=== PATIENT | female | born 1955 | race Caucasian/White ===

== ENCOUNTER → 2016-12-18 | Day surgery (SDC) | payer OTHER ==
[~2016-12-18] MED LIST: BACL10TA PO; BRIM0.2S LEFT EYE; DICL75 PO; ENBR50IN3 SQ/IV; FLUN8.9H INH; FURO20 PO; KETO2SHA5 TOP; LACTATED RINGER'S 1000 ML INJ 1,000 ML ONE; MS C15TA7 PO; NITR0.4S SL; ONDA4 PO; PERC10TA27 PO; POTA-267 PO; PROPOFOL 200 MG/20 ML AMP IV ONE; RANI150T PO; ROPI2TAB PO; SULF500T35 PO; TIMO0.5S29 EACH EYE; TRAZ100 PO; [UNRECOGNIZED DRUG - CODE] PO
--- NOTE | 2016-12-18 11:12 | GIPROC ---
[facility] [address] [facility], [address] EGD PROCEDURE REPORT EXAM DATE: 12/18/2016 PATIENT NAME: Chaz Webster MR #: [id number] BIRTHDATE: 1955 ATTENDING: Jona Zapata MD ORDER #: [id number] LABORER [employer]: Valarie Ortiz RN STATUS: outpatient INDICATIONS: The patient is a 60 yr old female here for an EGD due to chest pain and dysphagia PROCEDURE PERFORMED: EGD w/ biopsy MEDICATIONS: None, Per Anesthesia, None, and Per Anesthesia. TOPICAL ANESTHETIC: none CONSENT: The patient understands the risks and benefits of the procedure and understands that these risks include, but are not limited to: sedation, allergic reaction, infection, perforation and/or bleeding. Alternative means of evaluation and treatment include, among others: physical exam, x-rays, and/or surgical intervention. The patient elects to proceed with this endoscopic procedure. medical equipment was checked for proper function. Hand hygiene and appropriate measures for infection prevention was taken. After the risks, benefits and alternatives of the procedure were thoroughly explained, Informed consent was verified, confirmed and timeout was successfully executed by the treatment team. The patient was anesthetized with topical anesthesia and the EG-[id number] ([id number]) endoscope was introduced through the mouth and advanced to the second portion of the duodenum. Retroflexed views revealed no abnormalities The gastroscope was then slowly withdrawn and removed. ESOPHAGUS: The mucosa of the esophagus appeared normal. Multiple biopsies were performed. The stricture was dilated using a 18mm (54Fr) savary dilator over guidewire. Following this dilation, there was no change in the appearance of the stricture. The endoscopy was otherwise normal. STOMACH: There was mild gastritis in the gastric antrum. Multiple biopsies were performed. ADVERSE EVENTS: There were no complications. IMPRESSIONS: 1. The esophagus appeared normal; multiple biopsies were performed 2. Normal endoscopy otherwise 3. There was mild gastritis in the gastric antrum; multiple biopsies were performed 4. Retroflexed views revealed no abnormalities RECOMMENDATIONS: 1. Await biopsy results. Biopsy results will not be ready for 7-10 days. If you don't hear from us in two weeks, call our office for biopsy results. 2. Follow-up: GI clinic 4 week(s) PATIENT CONDITION: stable DISPOSITION: Home REPEAT EXAM: Jona Zapata MD eSigned: Jona Zapata MD 12/18/2016 11:11 AM cc: Mike Antonio
== END | disposition home or self-care (01) ==
LOC: ESDC 09:28
PROVIDERS: ATTEND Internal Medicine Gastroenterology
DX: R07.9 Chest pain, unspecified (principal); R13.10 Dysphagia, unspecified; K29.70 Gastritis, unspecified, without bleeding
CPT/HCPCS: 00740; 43239; 88305; 88312; J3010; J7120

== ENCOUNTER 2017-10-01 06:43 | Day surgery (SDC) | payer OTHER ==
[~2017-10-01] VITALS: Ht 167.6 cm; Wt 115.0 kg
[~2017-10-01 06:43] MED LIST changes: -LACTATED RINGER'S 1000 ML INJ 1,000 ML ONE; -PROPOFOL 200 MG/20 ML AMP IV ONE
[2017-10-01] MEDS ORDERED: IOHEXOL 350 MG/ML 50 ML BTL (for Cath Lab) OTHER ONE (06:44)
[2017-10-01 07:21] VITALS: BP 146/76; PULSE 70; RESP 20; TEMP 97.6; O2SAT 96
[2017-10-01] MEDS ORDERED: AMMO12LO TOPICAL (07:29)
[2017-10-01] MEDS ORDERED: CYCL7.5E EACH EYE (07:29)
[2017-10-01] MEDS ORDERED: HUMI40KI SQ (07:29)
[2017-10-01] MEDS ORDERED: GABA400C5 PO (07:29)
[2017-10-01] MEDS ORDERED: RANI150T PO (07:29)
[2017-10-01] MEDS ORDERED: ZOFR4TAB PO (07:29)
[2017-10-01] MEDS ORDERED: FLUT50SP EACH NARE (07:29)
[2017-10-01] MEDS ORDERED: VIGA0.5D EACH EYE (07:29)
[2017-10-01] MEDS ORDERED: PERC10TA27 PO (07:29)
[2017-10-01] MEDS ORDERED: TIMO0.5S30 EACH EYE (07:29)
[2017-10-01] MEDS ORDERED: NITR0.4S SL (07:29)
[2017-10-01] MEDS ORDERED: GALA24CA PO (07:29)
[2017-10-01] MEDS ORDERED: KETO2AER TOPICAL (07:29)
[2017-10-01] MEDS ORDERED: ISOS30TA3 PO (07:29)
[2017-10-01] MEDS ORDERED: FURO1TAB62 PO (07:29)
[2017-10-01] MEDS ORDERED: MORP1TAB24 PO (07:29)
[2017-10-01] MEDS ORDERED: ROPI2TAB23 PO (07:29)
[2017-10-01] MEDS ORDERED: SPIR25TA PO (07:29)
[2017-10-01] MEDS ORDERED: TRAZ100T10 PO (07:29)
[2017-10-01] MEDS ORDERED: BACL10TA PO (07:29)
[2017-10-01] MEDS ORDERED: KLOR10TA PO (07:29)
[2017-10-01] MEDS ORDERED: NS 1000P @30 MLS/HR (KVO) IV SCH (07:45)
[2017-10-01 07:53] LABS: AUTOMATED NEUTROPHIL # 1.1 TH/MM3 (1.8-7.7); BASOPHIL % 0.4 % (0.0-2.0); EOSINOPHIL # 0.2 TH/MM3 (0-0.4); EOSINOPHIL % 5.6 % (0.0-4.0); HEMATOCRIT 35.3 % (35.0-46.0); LYMPH % 44.7 % (9.0-44.0); LYMPHOCYTE # 1.7 TH/MM3 (1.0-4.8); MEAN CELL VOLUME 91.8 FL (80.0-100.0); MEAN CORPUSCULAR HEMOGLOBIN 31.3 PG (27.0-34.0); MEAN CORPUSCULAR HGB CONC 34.1 % (32.0-36.0); MEAN PLATELET VOLUME 6.9 FL (7.0-11.0); MONO % 19.6 % (0.0-8.0); MONOCYTE # 0.7 TH/MM3 (0-0.9); NEUT % 29.7 % (16.0-70.0); PLATELET COUNT 208 TH/MM3 (150-450); RED BLOOD COUNT 3.84 MIL/MM3 (4.00-5.30); RED CELL DISTRIBUTION WIDTH 13.7 % (11.6-17.2); WHITE BLOOD COUNT 3.8 TH/MM3 (4.0-11.0)
[2017-10-01 08:01] LABS: INTERNATIONAL NORMALIZED RATIO 1.1 RATIO; PROTHROMBIN TIME - PATIENT 10.7 SEC (9.8-11.6)
[2017-10-01 08:06] LABS: BICARBONATE 26.5 MEQ/L (21.0-32.0); CALCIUM 8.6 MG/DL (8.5-10.1); CREATININE 0.7 MG/DL (0.50-1.00)
[2017-10-01] MEDS ORDERED: HEPARIN-NS/PF INJ 1,000 ML ONE (08:25)
[2017-10-01] MEDS ORDERED: MIDAZOLAM HCL 2 MG/2 ML VIAL ONE (08:31)
[2017-10-01] MEDS ORDERED: VERAPAMIL HCL 5 MG/2 ML VIAL ONE (08:44)
[2017-10-01] MEDS ORDERED: HEPARIN SODIUM - IV 10,000 UNITS/10 ML VIAL ONE (08:44)
[2017-10-01] MEDS ORDERED: NITROGLYCERIN INJ 5 ML ONE (08:46)
[2017-10-01] MEDS ORDERED: MISC INFORMATION XX ONE (09:15)
--- NOTE | 2017-10-01 09:18 | CATHPROC ---
[facility] HIS Report Study Information Study Number Admission Scheduled Start Study Start [id number] Oct 01 2017 6:43AM 10/01/2017 Oct 01 2017 8:22AM [place] Service Cardiac Catheterization Admit Source Facility Department Other [facility] Physician and Clinical Staff Initial Julian Christianson Mortgage Accounting Clerk Dominga Bautista RN Mortgage Accounting Clerk Antonina Monteiro BSN Other Joseph Ross RCIS(BS) Recorder Caterina Siegel RCIS TECH2 Scrub Cesia Valladares RT(R) Procedures Performed Procedure Location (Site) Vessel Name Coronary Angiograms LCA Left Coronary Coronary Angiograms RCA Right Coronary Equipment Time Dot Compliance Specialist Description Size Mfg Part Number Used/Scraped TRANSDUCER, TRUWAVE [id number] 08:25 LiveIntent * Used W/STOCKCOCK *[id number] INTRODUCER SET, 08:25 [employer] FR 5 [id number] *[id number] Used MICROPUNCTURE, STIFFENED [id number] *[id number] 08:25 [employer] IND[employer]RIES PACK, CCL CUSTOM * Used *[id number] 08:36 MEDTRONIC JR 4.0 DXTERITY CATHETER FR 5 Used *[id number] BAND, RADIAL COMPRESSION TR [id number] 09:00 [employer] 24CM Used SHORT 24 *[id number] 08:25 [employer] WIRE, 3MMJ .035 180CM 180CM Used *[id number] 08:57 [employer] WIRE, EXCHANGE 260CM 3MMJ 260CM Used *[id number] 08:25 NAMIC MANIFOLD, 4 PORT * Used *[id number] 08:25 [employer]COMED OMNIPAQUE, 350 MG, 150ML 150ML [id number] Used [id number] 08:25 [employer] BLANKET,WARM AIR CCL * Used *[id number] 08:25 TERUMO MEDICAL SHEATH, FR5 TERUMO (10CM) FR 5 Used *[id number] SHEATH, FR6 TRANSRADIAL RM*[id number] 08:53 TERUMO MEDICAL FR 6 Used SLENDER 10CM *[id number] Equipment Model, Serial, Lot Number and Expiration Data Description Model Number Serial Number Lot Number Expiration Date JR 4.0 DXTERITY CATHETER [id number] 06-05-2020 History: Current Medications Medication Dosage/Unit Route Frequency Last Date/Time Taken LASIX NTG SL K-Dur Imdur History: Allergies Allergy Reaction iohexol Sleepiness diatrizoate meglumine Sleepiness gadoteridol Sleepiness zolpidem gadodiamide Sleepiness vancomycin Hives and Rash iodixanol Sleepiness gadobenic acid Sleepiness DUREZOL History: Risk Factors Family History of Hypertension Dyslipidemia Previous CT Previous Heart Failure Premature CAD Yes Yes Yes Yes No Prior Valve Prior PCI Prior CABG Surgery No No No Cerebrovascular Peripheral Artery Chronic Lung On Dialysis Diabetes Disease Disease Disease No No No Yes No History: Stress Tests Stress or Imaging Studies Performed Yes Standard Exercise Stress Test No Stress Echo No Stress Test SPECT Yes History: Other Current Smoker No Labs Hgb (g/dl) Hct (%) RBC (MIL/MM3) WBC (l/cumm) Platelets (thousands) 11.60-17.00 35.00-51.00 4.00-5.90 4.00-11.00 150.00-450.00 12.0 35.3 3.8 3.8 208 Glucose (mg/dl) BUN (mg/dl) Creatinine (mg/dl) BUN:Creatinine (1:x) 74.00-106.00 7.00-18.00 0.50-1.30 10.00-20.00 99 24 0.7 34.3 Na (meq/l) K (meq/l) Cl (meq/l) CO2 (mmol/L) 136.00-145.00 3.50-5.10 98.00-107.00 21.00-32.00 140 3.8 105 26.5 PT (sec) PTT (sec) INR (PTT:PT) 9.80-11.60 24.30-30.10 0.90-1.10 10.7 27.3 1.1 CPK-MB (ng/ML) 0.50-3.60 Not Drawn Medication Medication Total Dose (Bolus/Oral) Medication Total Dosage/Unit 1% XYLOCAINE 10 mL FENTANYL 25 mcg OXYGEN 2 l/min RADIAL COCKTAIL 5 mL (Bolus) VERSED 0.5 mg Medications (Bolus/Oral) Medication Time Given Dosage/Unit Administered By Reason OXYGEN 10/01/2017 8:35:34 AM 2 l/min Dominga Bautista 2 l/min OXYGEN given in lab by Dominga BautistaMARYURI via Nasal. 1% XYLOCAINE 10/01/2017 8:48:14 AM 10 mL Julian Pantoja 10 mL 1% XYLOCAINE given in lab by Julian Pantoja G in Right Radial via Subcutaneous. VERSED 10/01/2017 8:48:28 AM 0.5 mg Dominga Bautista 0.5 mg VERSED given in lab by Dominga Bautista RN in Right Antecubital via Peripheral IV. FENTANYL 10/01/2017 8:48:45 AM 25 mcg Dominga Bautista 25 mcg FENTANYL given in lab by Dominga Bautista, MARYURI in Right Antecubital via Peripheral IV. RADIAL COCKTAIL 10/01/2017 8:52:09 AM 5 mL (Bolus) Julian Pantoja 5 mL (Bolus) RADIAL COCKTAIL given in lab by Dominga Bautista RN via Radial. Using [Solution Name]. R pia: Ntg 200mcg Verapamil 2.5mg Heparin 4600U. Medication (Drip) Medication Time Given Dosage/Unit Concentration/Unit Diluent (ml) Solutio n IV Solutions 10/01/2017 8:27:36 AM 0 mL (IV) 500 NaCl .9 Patient arrived on IV Solutions in Right Antecubital via Peripheral IV. Pump/Drip Flow = 20 ml/hr usi ng NaCl .9. Initial Case Assessment Cardiovascular HR Rhythm NIBP Chest Pain 63 sr 133/70 0 Circulatory - Right Pulses Dorsalis Pedis Femoral 1 2 Scale (0,1,2,3,4,d) Circulatory - Left Pulses Dorsalis Pedis Femoral 1 2 Scale (0,1,2,3,4,d) Neurological State Oriented to time-place- Alert Moves all extremities person Respiration - General Respiration Rate SpO2 (%) (B/min) 15 97 Final Case Assessment Cardiovascular HR Rhythm NIBP Chest Pain 71 sr 120/66 0 Circulatory - Right Pulses Dorsalis Pedis Femoral Radial 1 2 2 Scale (0,1,2,3,4,d) Circulatory - Left Pulses Dorsalis Pedis Femoral Radial 1 2 Scale (0,1,2,3,4,d) Neurological State Oriented to time-place- Alert Moves all extremities person Respiration - General Respiration Rate SpO2 (%) (B/min) 16 96 Chronological Log Time Study Chronological Log 8:21:44 Patient arrived via Bed. 8:21:49 Patient Name, D.O.B, / Armband Verified By R.N. Vitals capture started with the following parameters, Patient=Adult, Interval=5 min, Initial Pre zyzws=835 mmHg, 8:23:37 Deflation Rate=5 mmHg, Cuff placed on Left Arm 8:23:56 Consent signed by the physician and the patient and verified by the [facility] staff. 8:23:57 Pre-op and post- op instructions given; patient acknowledges understanding of instructions. 8:23:58 Verbal Stimulation=2 Physical Stimulation=2 Airway=2 Respiration=2 TOTAL=8. (0=absent, 1=danielson ited, 2=present) 8:24:20 QETV=951/70 mmhg, SpO2=97.0 % 8:25:40 Allens test performed on the right radial and ulnar artery. 8:26:37 Reference ECG taken 8:27:27 Presedation assessment performed by [facility] RN. 8:27:31 Patient has been NPO for More than 6Hrs. 8:27:32 Skin Breakdown-none 8:27:33 Parag Prominences Protected 8:27:36 A # 20 IV was noted in the Antecubital (right). Grade = patent 8:27:36 Patient arrived on IV Solutions in Right Antecubital via Peripheral IV. Pump/Drip Flow = 20 ml/hr using NaCl .9. 8:27:37 History and physical on the chart or being dictated. Assessment: Initial Case, HR=63 BPM, Rhythm=sr, EYZK=931/70 mmhg, Chest Pain=0 Right Pulses: Tera Ped=1, Femoral=2 8:27:38 Left Pulses: Tera Ped=1, Femoral=2 Neurological: State=Alert, Ox3, COHEN Respiration: Resp=15 B/min, SpO2=97 % 8:29:17 HR=60 bpm, OWFS=206/70 mmhg, SpO2=96.0 %, Resp=15 B/min 8:34:16 HR=58 bpm, XEDQ=327/72 mmhg, SpO2=99.0 %, Resp=15 B/min 8:35:34 2 l/min OXYGEN given in lab by Dominga Bautista, RN via Nasal. 8:35:48 Right groin and right radial prepped with 2% chlorhexidine, and draped after a 3 min. waitin g time. 8:38:55 MD arrived. 8:39:15 HR=56 bpm, JLUB=037/68 mmhg, GwX1=897.0 %, Resp=13 B/min 8:41:20 Pressure channel 1 zeroed. Time Out. Correct patient, correct procedure, correct physician, power injector not loaded with contrast with surgical 8:42:47 team present. Time Out Concurred by MD and individual staff in procedure. 8:42:49 Case Start 8:44:16 HR=60 bpm, OBNE=760/68 mmhg, SpO2=99.0 %, Resp=17 B/min 8:48:14 10 mL 1% XYLOCAINE given in lab by Julian Pantoja in Right Radial via Subcutaneous. 8:48:28 0.5 mg VERSED given in lab by Dominga Bautista, MARYURI in Right Antecubital via Peripheral IV. 8:48:45 25 mcg FENTANYL given in lab by Dominga Bautista, MARYURI in Right Antecubital via Peripheral IV. 8:49:17 HR=63 bpm, JUOC=500/66 mmhg, QjW5=106.0 %, Resp=11 B/min 8:50:23 Access site was Radial Artery. Right A SHEATH, FR6 TRANSRADIAL SLENDER 10CM FR 6 was advanced into the Fem Art (right) using the Perc utaneous 8:52:05 technique. 5 mL (Bolus) RADIAL COCKTAIL given in lab by Dominga Bautista, MARYURI via Radial. Using [Solution Nam e]. Reason: Ntg 8:52:09 200mcg Verapamil 2.5mg Heparin 4600U. A JR 4.0 DXTERITY CATHETER FR 5 was advanced over a wire. OMNIPAQUE, 350 MG, 150ML 150ML was use d for 8:53:11 injections. 8:54:16 HR=69 bpm, IWYX=495/55 mmhg, SpO2=96.0 %, Resp=22 B/min 8:54:58 Pressure channel 1 zeroed. Recorded Pressure: LV, HR=69, Condition=Condition 1 8:55:11 (Left Ventricle) LV 101/9/14 Recorded Pressure: LV, Ao, HR=70, Condition=Condition 1 8:55:21 (Left Ventricle) LV 98/6/14, (Aorta) Ao 100/60/78 8:55:59 The RCA was injected and visualized at various angles. OMNIPAQUE, 350 MG, 150ML 150ML use d. After removing the current catheter a JL 3.5 INFINITI CATHETER FR 5 was advanced over a WIRE, EXCHANGE 260CM 8:56:33 3MMJ 260CM. 8:59:09 The LCA was injected and visualized at various angles. OMNIPAQUE, 350 MG, 150ML 150ML use d. 8:59:13 HR=66 bpm, LTDX=136/65 mmhg, SpO2=97.0 %, Resp=14 B/min 9:01:31 Catheter was removed Radial Compression Device Used. 10 mLs of air placed in BAND, RADIAL COMPRESSION TR SHORT 24 2 4CM. Affected 9:02:41 hand 96 % O2 saturation. 9:04:18 HR=74 bpm, URFB=317/66 mmhg, SpO2=98.0 %, Resp=15 B/min 9:04:48 Case End 9:05:46 No case complications noted. 9:05:47 Cine recording checked. 9:05:50 Bedside Report will be given. Assessment: Final Case, HR=71 BPM, Rhythm=sr, PQRR=070/66 mmhg, Chest Pain=0 Right Pulses: Tera Ped=1, Femoral=2, Radial=2 9:05:51 Left Pulses: Tera Ped=1, Femoral=2 Neurological: State=Alert, Ox3, COHEN Respiration: Resp=16 B/min, SpO2=96 % 9:05:58 Vitals capture stopped. 9:10:20 Patient moved to stretcher 9:11:28 Patient transported to DOCU. End Study - Contrast Media Used In Study Contrast Total Opened (mL) Total Used (mL) Total Wasted (mL) Omnipaque 45 45 0 End Study - Maximum Contrast Load Max Contrast Load (mL) 821.4 End Study - Radiation Exposure Fluoro Time (minutes) 2.1 End Study - Sheaths Sheaths Pulled By Sheath Hold Time (min) Julian Pantoja End Study - Patient Disposition Complications Transferred To Interventional Outcome No Telemetry Bed No attempt made
--- NOTE | 2017-10-01 09:42 | MA ---
cc: JULIAN PEARSON DO DATE: October 01, 2017 PROCEDURE Left heart catheterization, coronary angiogram, moderate sedation 15 minutes. PREPROCEDURE DIAGNOSIS Abnormal stress test, chest pain. POSTPROCEDURE DIAGNOSIS Mild coronary artery disease. MEDICATIONS 1. Versed 0.5 mg. 2. Fentanyl 25 mcg. 3. Verapamil 2.5 mg. 4. Nitro 200 mcg. 5. Heparin 4600 units. CONTRAST USED 45 ccs. FLUOROSCOPY 2.1 minutes. SEDATION Moderate sedation 15 minutes. ESTIMATED BLOOD LOSS 10 ccs. PROCEDURAL SUMMARY Chaz Webster is a pleasant 61-year-old female whom I see in the office. She underwent stress testing which showed a small anterior defect but she continued to have chest pain and so she was recommended cardiac catheterization. Risks, benefits and alternatives were explained to her and she consented as such. She was brought to the lab and prepped in the usual sterile fashion. Right radial artery was accessed using a modified Seldinger technique and placement of a 5/6 Setswana slender sheath. This was easily aspirated and flushed. A JR-4 was advanced over a J-wire to the ascending aorta and across the aortic valve for measurement of left ventricular pressure. This was pulled back across the aortic valve showing no significant gradient of aortic stenosis. JR-4 was used for selective angiography of the right coronary artery system. This was exchanged out for a JL-3.5 which was used for selective angiography of the left coronary artery system. JL-3.5 was then removed over a J-wire. Radial band was placed over the arteriotomy site for hemostasis. The patient left the director of cath lab cardiovascularly stable. FINDINGS Left main normal size vessel with adequate reflux. It bifurcates into an LAD and circumflex. LAD. Normal-size vessel with mild luminal irregularities distally but no significant disease. Left circumflex normal size vessel with mild luminal irregularities in the midportion. Gives off three obtuse marginals which have some mild tortuosity most likely due to prolonged hypertension. RCA is normal vessel with no significant disease. LVEDP 14. IMPRESSION 1. Mildly abnormal stress test. 2. Atypical chest pain. 3. Mild CAD by cardiac catheterization. RECOMMENDATIONS 1. Ms. Webster appears to have mild coronary artery disease and she will be recommended continued medical management. 2. She will follow up with me in the office as previously scheduled. Thank you for allowing me to see Chaz Webster, if there are any questions, please do not hesitate to call. Julian ROSASP/TLL /9:12 AM /9:29 AM
--- NOTE | 2017-10-01 11:38 | EKG ---
Date Performed: 10/01/2017 Time Performed: 07:41:32 PTAGE: 61 years EKG: Sinus rhythm with borderline 1st degree A-V block. rSr'(V1) - probable normal variant Low QRS voltages in precord ial leads Borderline ECG PREVIOUS TRACING : 04/08/2016 11.41 Since the prior tracing, there has been no significant linda DOCTOR: Antoine Severino Interpretating Date/Time 10/01/2017 11:37:01
== END 2017-10-01 11:29 | disposition home or self-care (01) ==
LOC: HDOC 06:43 → HDIC 06:43 → HDOC 11:29
PROVIDERS: ATTEND Nuclear Medicine Nuclear Cardiology
DX: I25.10 Atherosclerotic heart disease of native coronary artery without angina pectoris (principal); R94.39 Abnormal result of other cardiovascular function study; I50.9 Heart failure, unspecified; I10 Essential (primary) hypertension
CPT/HCPCS: 80048; 85025; 85610; 85730; 93005; 93458; 99152; C1769; C1893; J1644; J2250; J3010; Q9967

== ENCOUNTER 2018-05-11 23:05 | Observation (INO) ==
[2018-05-12 00:33] LABS: Baso % (Auto) 0.4 % (0.0-2.0); Eos # (Auto) 0.1 th/mm3 (0.0-0.4); Eos % (Auto) 2.6 % (0.0-4.0); Hematocrit 37.5 % (35.0-46.0); Lymph # (Auto) 1.6 th/mm3 (1.0-4.8); Lymph % (Auto) 45.5 % (9.0-44.0); Mean Corpuscular HGB Conc 34.6 % (32.0-36.0); Mean Corpuscular Hemoglobin 33.2 pg (27.0-34.0); Mean Corpuscular Volume 96.1 fL (80.0-100.0); Mean Platelet Volume 7.3 fL (7.0-11.0); Mono # (Auto) 0.6 th/mm3 (0.0-0.9); Mono % (Auto) 15.6 % (0.0-8.0); Neut # (Auto) 1.3 th/mm3 (1.8-7.7); Neut % (Auto) 35.9 % (16.0-70.0); Platelet Count 168 th/mm3 (150-450); Red Cell Distribution Width 13.1 % (11.6-17.2); White Blood Count 3.6 th/mm3 (4.0-11.0)
--- NOTE | 2018-05-12 00:43 | XR ---
EXAM DATE: 05/12/2018 12:17 AM EDT AGE/SEX: 62 years / Female INDICATIONS: Evaluate for pneumonia, pneumothorax, or communicable disease. Chest pain. High blood p ressure. Left arm pain. CLINICAL DATA: This is the patient's initial encounter. Patient reports that signs and symptoms have been present for 1 day and indicates a pain score of 2/10. MEDICAL/SURGICAL HISTORY: . high blood pressure . Breast augmentation. Pain pump. COMPARISON: . FINDINGS: PA and lateral views of the chest demonstrate the lungs to be symmetrically aerated without evidence of mass, infiltrate or effusion. The cardiomediastinal contours are unremarkable. Osseous structures are intact. CONCLUSION: No active disease. Spinal stimulator wires overlie the thoracic spinal canal. Electronically signed by: Mario Dwyer MD 05/12/2018 12:41 AM EDT
[2018-05-12 00:56] LABS: Anion Gap 10 meq/L (5-15); Blood Urea Nitrogen 28 mg/dL (7-18); Calcium 8.6 mg/dL (8.5-10.1); Carbon Dioxide 19.4 meq/L (21.0-32.0); Chloride 108 meq/L (98-107); Glomerular Filtration Rate 71 mL/min (>89); Glucose,Random 101 mg/dL (74-106); Potassium 3.7 meq/L (3.5-5.1); Sodium 137 meq/L (136-145)
[2018-05-12 00:59] LABS: Creatine Kinase 115 U/L (26-192)
[2018-05-12 01:14] LABS: Creatine Kinase MB 1.5 ng/mL (0.5-3.6)
--- NOTE | 2018-05-12 01:41 | ED ---
HPI General Chief complaint: Nausea/Vomiting/Diarrhea Stated complaint: Bp/Left arm pain Time Seen by Provider: 05/12/18 01:35 Source: patient Limitations: no limitations History of Present Illness HPI narrative: The patient is a 62 year old female who presents to the [facility] emergency department with a history of CHF, hypertension, RA, and neuropathy c/o elevated blood pressures taken at home while feeling "weird." She also endorses left arm pain, 6/10, aching in nature. She has had intermittent sharp, stabbing pain on her left chest wall as well. The patient was seen in [place] 1 week ago for severely elevated blood pressure, she was discharged and seen for followup with her sheet rock finisher. She was prescribed amlodopine 5mg. Today she noted feeling "weird" and having her chest wall and arm pain. She took her blood pressure and reports it was 170s/90s, she took her Amlodopine for the first time after this reading. Of note she had an episode of squeezing chest pain 6 days previous and took 2 doses of nitroglycerin sublingual with resolution. She denies shortness of breath, dyspnea on exertion , orthopnea, fevers. She endorses nausea today that has dissipated. Related Data Home Medications Medication Instructions Recorded Confirmed amlodipine 5 mg PO DAILY 05/12/18 05/12/18 aspirin [Aspir-81] 81 mg PO DAILY 05/12/18 05/12/18 furosemide 20 mg PO DAILY 05/12/18 05/12/18 gabapentin 400 mg PO TID 05/12/18 05/12/18 memantine 5 mg PO BID 05/12/18 05/12/18 morphine 15 mg PO DAILY 05/12/18 05/12/18 ondansetron [Zofran ODT] 4 mg PO QID PRN 05/12/18 05/12/18 oxycodone-acetaminophen 1 tab PO Q4H PRN 05/12/18 05/12/18 potassium chloride [Klor-Con 10] 10 meq PO BID 05/12/18 05/12/18 ranitidine HCl 150 mg PO DAILY 05/12/18 05/12/18 ropinirole 2 mg PO HS 05/12/18 05/12/18 spironolactone 25 mg PO DAILY 05/12/18 05/12/18 trazodone 100 mg PO HS 05/12/18 05/12/18 Allergies Allergy/AdvReac Type Severity Reaction Status Date / Time vancomycin Allergy Severe Hives and Unverified 10/01/17 07:52 Rash zolpidem Allergy Severe Unverified 10/01/17 07:52 diatrizoate meglumine Allergy Mild Sleepiness Unverified 10/01/17 07:52 gadobenic acid Allergy Mild Sleepiness Unverified 10/01/17 07:52 gadodiamide Allergy Mild Sleepiness Unverified 10/01/17 07:52 gadoteridol Allergy Mild Sleepiness Unverified 10/01/17 07:52 iodixanol Allergy Mild Sleepiness Unverified 10/01/17 07:52 iohexol Allergy Mild Sleepiness Unverified 10/01/17 07:52 DUREZOL AdvReac Intermediate Uncoded 06/17/16 13:53 Review of Systems Constitutional Denies fatigue, Denies headache(s) and Denies night sweats Eyes Denies change in vision ENT Reports system reviewed and no additional complaints, except as docu and Denies dizziness Cardiovascular Reports chest pain Respiratory Denies cough Gastrointestinal Denies abdominal pain Genitourinary Reports system reviewed and no additional complaints, except as docu Integumentary/Breasts Reports system reviewed and no additional complaints, except as docu Neurologic Denies vertigo, Denies dizziness and Denies headache(s) [facility] Medical History Medical History CHF (congestive heart failure) (Acute) Gastritis (Acute) Glaucoma (Acute) Irritable bowel (Acute) Neuropathy (Acute) Osteoarthritis (Acute) Restless leg (Acute) Rheumatoid arteritis (Acute) Sleep apnea (Acute) Stroke (Acute) Social History Social History Substance History: No History of Abuse Second Hand Smoke Exposure: Yes Smoking Status: Never smoker How Often Do You Have a Drink Containing Alcohol: Monthly or less Recent Travel in [facility] within the Last 8 Weeks: No Recent Out of Country Travel within the Last 8 Weeks: No Exam Const Nutritional Appearance: obese Orientation: alert, awake and oriented x3 HENMT Head: normocephalic and atraumatic Nose: no nasal discharge and no epistaxis Mouth: moist mucous membranes Eyes Sclera: normal sclerae Pupils: PERRL Neck Neck: trachea midline and no JVD Chest Chest: normal palpation of entire chest wall Resp Effort & Inspection: no use of accessory muscles Auscultation: clear to auscultation bilaterally Cardio Jugular venous pressure: no JVD Rate: regular rate Rhythm: regular rhythm Heart Sounds: no murmurs Pulses: posterior tibial pulses present GI Inspection: non-distended Palpation: soft, no hepatosplenomegaly and nontender Back/Spine/Pelvis Back: no CVA tenderness Neuro General: alert and awake Cranial Nerves: other (Grossly nonfocal.) Speech: speech normal Motor: no movement abnormalities noted Extrem General: normal to inspection, full ROM, no clubbing, no cyanosis, edema and pedal edema Left upper extremity: normal to inspection, full ROM and no joint enlargement Psych Mood: congruent mood Affect: normal affect Judgment: judgment good Course Initial Documented Vital Signs Temperature 97.8 F 05/11/18 23:27 Pulse Rate 72 05/11/18 23:27 Respiratory Rate 23 05/11/18 23:27 Blood Pressure 161/93 H 05/11/18 23:27 Pulse Oximetry 96 05/11/18 23:27 Last Documented Vital Signs Temperature 98.0 F 05/11/18 23:30 Pulse Rate 80 05/12/18 03:30 Respiratory Rate 20 05/12/18 04:09 Blood Pressure 108/55 L 05/12/18 03:30 Pulse Oximetry 97 05/12/18 03:30 Medical Decision Making MDM Narrative Medical decision making narrative: During the course of the patient's emergency department visit, the patient's history, examination, and differential diagnosis were reviewed with the patient. The patient was placed on a threat monitoring analyst with oximetry and frequent blood pressure monitoring. The patient had IV access obtained and blood work sent for analysis. A diagnostic evaluation was started regarding the patient's chest pain. The patient was initially provided nitroglycerin 2% ointment, Aspirin 324 mg PO , and nitroglycerin 0.4 mg SL. The patient's diagnostic studies are remarkable for a white count of 3.6, hemoglobin 13, platelets 168, chemistries remarkable for a chloride of 108, CO2 19.4, BUN 28. Initial set of cardiac enzymes are negative. A chest x-ray showed no acute abnormality. The patient was agreeable with the plan to proceed with admission to the chest pain center for rule out serial cardiac enzyme protocol. Medical Screen Exam Complete: Yes Emergency Medical Condition: Yes Differential Diagnosis Differential Diagnosis: Acute coronary syndrome, versus musculoskeletal strain, versus pleurisy, versus hypertensive emergency Medical Records Medical records reviewed: Yes I reviewed the patient's medical records. Lab Data Lab results reviewed: Yes I reviewed the patient's lab results. Result diagrams: 05/11/18 23:55 05/11/18 23:55 Lab Results 05/11/18 05/11/18 05/12/18 Range/Units 23:55 23:55 04:05 WBC 3.6 L (4.0-11.0) th/mm3 RBC 3.90 L (4.00-5.30) mil/mm3 Hgb 13.0 (11.6-15.3) gm/dL Hct 37.5 (35.0-46.0) % MCV 96.1 (80.0-100.0) fL MCH 33.2 (27.0-34.0) pg MCHC 34.6 (32.0-36.0) % RDW 13.1 (11.6-17.2) % Plt Count 168 (150-450) th/mm3 MPV 7.3 (7.0-11.0) fL Neut % (Auto) 35.9 (16.0-70.0) % Lymph % (Auto) 45.5 H (9.0-44.0) % [place] % (Auto) 15.6 H (0.0-8.0) % Eos % (Auto) 2.6 (0.0-4.0) % Baso % (Auto) 0.4 (0.0-2.0) % Neut # (Auto) 1.3 L (1.8-7.7) th/mm3 Lymph # (Auto) 1.6 (1.0-4.8) th/mm3 [place] # (Auto) 0.6 (0.0-0.9) th/mm3 Eos # (Auto) 0.1 (0.0-0.4) th/mm3 Baso # (Auto) 0.0 (0.0-0.2) th/mm3 WBC Differential . Differential Comment Auto diff final Sodium 137 (136-145) meq/L Potassium 3.7 (3.5-5.1) meq/L Chloride 108 H (98-107) meq/L Carbon Dioxide 19.4 L (21.0-32.0) meq/L Anion Gap 10 (5-15) meq/L BUN 28 H (7-18) mg/dL Creatinine 0.82 (0.50-1.00) mg/dL Estimated GFR 71 L (>89) mL/min Random Glucose 101 (74-106) mg/dL Calcium 8.6 (8.5-10.1) mg/dL Total Creatine Kinase 115 115 (26-192) U/L CK-MB (CK-2) 1.5 (0.5-3.6) ng/mL Troponin I Less than 0.02 L Less than 0.02 L (0.02-0.05) ng/mL Imaging Data Radiologist's impression: Chest X-Ray 05/12/18 00:05 CONCLUSION: No active disease. Spinal stimulator wires overlie the thoracic spinal canal. ECG Data Attestation: I personally reviewed and interpreted this ECG as follows: Interpretation: The patient had an EKG done on arrival. The patient's EKG reveals a sinus rhythm heart rate is 67 QRS duration is 99 ms, QTC 422 ms. The patient is noted to have an incomplete right bundle branch block. This is compared to a prior EKG done at this facility and is similar in appearance. No acute ST segment elevation. T waves are inverted in lead III. Discharge Plan Discharge Disposition Patient Disposition: 30 Still Patient Discharge Details Diagnosis: Chest pain, rule out acute myocardial infarction Physicians Team ED Provider: Laurie Young Primary Care Provider: Dariela Knox Attending Provider: Antoine Severino Discharge Interventions Interventions: Vital Signs Last Done: 05/12/18 03:30 Status ED Status: Admitted Observation Patient
[2018-05-12 05:09] LABS: Creatine Kinase 115 U/L (26-192)
[2018-05-12 08:05] LABS: Creatine Kinase 100 U/L (26-192)
[2018-05-12] MEDS ORDERED: Furosemide 20 MG Tablet PO SCH (09:45)
[2018-05-12] MEDS ORDERED: amLODIPine 5 MG Tablet PO SCH (09:45)
--- NOTE | 2018-05-12 10:09 | P.HPCA ---
History of Present Illness Primary Care Physician: Dariela Knox MD Chief Complaint: Chest pain History of Present Illness: This is a 62-year-old female with history of diastolic congestive heart failure , 5 myalgia, hyperlipidemia, hypertension, osteoarthritis, rheumatoid arthritis that presents to ED to be evaluated for elevated blood pressure and chest pain. Patient was in [place] little while ago and told she had blood pressure and to seek treatment when she came back to [place]. She has since been prescribed amlodipine. Yesterday she was not feeling right. Had some left arm achiness checked her blood pressure was 174. Her chest discomfort lasted hours. States she was given nitroglycerin in the emergency department which brought her blood pressure down and she started to feel better. States she follows up with Dr. Pantoja of cardiology on outpatient basis. I reviewed records and the patient had a cardiac catheterization October 01, 2017 at this facility after having a abnormal stress test. Heart catheterization revealed mild CAD. LAD had mild luminal irregularities. Circumflex had mild luminal irregularities. Currently denies discomfort. States she scheduled to have a loop recorder placed by Dr. Pantoja tomorrow. Patient does not smoke. There is family history of CAD. - Diagnosis (1) Chest pain (2) HTN (hypertension) Review of Systems General: Patient denies fevers, chills, and recent travel. HEENT: Patient denies headache, sore throat, difficulty swallowing. Cardiovascular: Has the chest discomfort as mentioned above. Denies sensation of heart beating rapidly or irregularly. No syncope. Denies diaphoresis. Respiratory: Denies shortness of breath or inspirational chest discomfort. Denies coughing wheezing or hemoptysis. GI: Patient denies nausea, vomiting, diarrhea, abdominal pain, bloody stools. Musculoskeletal: Patient denies joint pain or edema. Denies calf pain or edema. Neurovascular: Patient denies numbness, tingling, weakness in extremities. Denies headache. Endocrine: Denies polyuria and polydipsia. Hematologic: Denies easy bruising. Skin: Denies rash or itching. PMFSH - History History Provided By: Patient - Medical History Medical History: Medical History (Last Updated 05/12/18 @ 02:13 by Heaven Bal) CHF (congestive heart failure) Gastritis Glaucoma Irritable bowel Neuropathy Osteoarthritis Restless leg Rheumatoid arteritis Sleep apnea Stroke - Tobacco History Second Hand Smoke Exposure: Yes Smoking Status: Never smoker - Alcohol History How Often Do You Have a Drink Containing Alcohol: Monthly or less - Substance Use History Substance History: No History of Abuse - Travel History Recent Travel in the [place] Within the Last 8 Weeks: No Recent Travel Out of the Country Within the Last 8 Weeks: No - Immunization History Tetanus Immunization: <5 Years Hx Influenza Vaccine This Season: Yes Medications and Allergies Active Medications: Active Medications Hydrocodone Bitart/Acetaminophen ([place] 7.5/325) 1 tab PO Q4H PRN PRN Reason: PAIN SCALE 1 TO 7 Last Admin: 05/12/18 05:00 Dose: 1 tab Amlodipine Besylate (Norvasc) 5 mg PO DAILY EBER Aspirin (Ecotrin) 81 mg PO DAILY EBER Famotidine (Pepcid) 20 mg PO BID EBER Furosemide (Lasix) 20 mg PO DAILY EBER Gabapentin (Neurontin) 400 mg PO TID EBER Memantine (Namenda) 5 mg PO BID EBER Morphine Sulfate (Msir) 15 mg PO DAILY EBER Nitroglycerin (Nitrostat Sl) 0.4 mg SL Q5M PRN PRN Reason: CHEST PAIN Potassium Chloride (Klor-Con 10) 10 meq PO BID EBER Ropinirole HCl (Requip) 2 mg PO HS EBER Sodium Chloride (Ns Flush) 2 ml IV.FLUSH BID EBER Sodium Chloride (Ns Flush) 2 ml IV.FLUSH PRN PRN PRN Reason: FLUSH AFTER USING IV ACCESS Spironolactone (Aldactone) 25 mg PO DAILY EBER Trazodone HCl (Desyrel) 100 mg PO HS EBER Allergies Allergy/AdvReac Type Severity Reaction Status Date / Time vancomycin Allergy Severe Hives and Unverified 10/01/17 07:52 Rash zolpidem Allergy Severe Unverified 10/01/17 07:52 diatrizoate meglumine Allergy Mild Sleepiness Unverified 10/01/17 07:52 gadobenic acid Allergy Mild Sleepiness Unverified 10/01/17 07:52 gadodiamide Allergy Mild Sleepiness Unverified 10/01/17 07:52 gadoteridol Allergy Mild Sleepiness Unverified 10/01/17 07:52 iodixanol Allergy Mild Sleepiness Unverified 10/01/17 07:52 iohexol Allergy Mild Sleepiness Unverified 10/01/17 07:52 DUREZOL AdvReac Intermediate Uncoded 06/17/16 13:53 Home Medications Medication Instructions Recorded Confirmed Type amlodipine 5 mg PO DAILY 05/12/18 05/12/18 History aspirin [Aspir-81] 81 mg PO DAILY 05/12/18 05/12/18 History furosemide 20 mg PO DAILY 05/12/18 05/12/18 History gabapentin 400 mg PO TID 05/12/18 05/12/18 History memantine 5 mg PO BID 05/12/18 05/12/18 History morphine 15 mg PO DAILY 05/12/18 05/12/18 History ondansetron [Zofran ODT] 4 mg PO QID PRN 05/12/18 05/12/18 History oxycodone-acetaminophen 1 tab PO Q4H PRN 05/12/18 05/12/18 History potassium chloride [Klor-Con 10] 10 meq PO BID 05/12/18 05/12/18 History ranitidine HCl 150 mg PO DAILY 05/12/18 05/12/18 History ropinirole 2 mg PO HS 05/12/18 05/12/18 History spironolactone 25 mg PO DAILY 05/12/18 05/12/18 History trazodone 100 mg PO HS 05/12/18 05/12/18 History Exam Vital signs: Vital Signs 05/11/18 23:27 05/11/18 23:30 05/12/18 03:30 Temperature 97.8 F 98.0 F Pulse Rate 72 66 80 Respiratory Rate 23 20 20 Blood Pressure 161/93 H 136/71 108/55 L Pulse Oximetry 96 98 97 05/12/18 04:09 05/12/18 06:31 05/12/18 08:52 Temperature Pulse Rate 67 Respiratory Rate 20 20 18 Blood Pressure 130/60 Pulse Oximetry 98 Intake & Output 05/11/18 05/12/18 05/12/18 18:59 06:59 18:59 Weight 111.13 kg Narrative: GENERAL: This is a well-nourished, well-developed patient, in no apparent distress. Patient speaks in clear complete sentences. Patient is pleasant. HEENT: Head is atraumatic and normocephalic. Neck is supple without lymphadenopathy and trachea is midline. No JVD or carotid bruits. CARDIOVASCULAR: Regular rate and rhythm without murmurs, gallops, or rubs. RESPIRATORY: Clear to auscultation. Breath sounds equal bilaterally. No wheezes , rales, or rhonchi. Chest wall is nontender. No use of accessory muscles. GASTROINTESTINAL: Abdomen is nontender, nondistended. Abdomen soft. No obvious pulsatile mass or bruit. No CVA tenderness. Strong femoral pulses bilaterally. Normal bowel sounds in all quadrants. MUSCULOSKELETAL: Patient is moving upper and lower extremities freely. No calf tenderness or edema, no Homans sign. Strong pulses in upper and lower extremities. NEUROLOGICAL: Patient is alert and oriented. Cranial nerves 2-12 are grossly intact. No focal deficits and speech is clear. SKIN: No rash and turgor is normal. Results 05/11/18 23:55 05/11/18 23:55 Cardiac Enzymes 05/11/18 05/12/18 05/12/18 Range/Units 23:55 04:05 05:45 CK-MB (CK-2) 1.5 (0.5-3.6) ng/mL Troponin I Less than 0.02 L Less than 0.02 L Less than 0.02 L (0.02-0.05) ng/mL 05/12/18 Range/Units 08:47 CK-MB (CK-2) (0.5-3.6) ng/mL Troponin I Less than 0.02 L (0.02-0.05) ng/mL CBC 05/11/18 Range/Units 23:55 WBC 3.6 L (4.0-11.0) th/mm3 RBC 3.90 L (4.00-5.30) mil/mm3 Hgb 13.0 (11.6-15.3) gm/dL Hct 37.5 (35.0-46.0) % Plt Count 168 (150-450) th/mm3 Neut # (Auto) 1.3 L (1.8-7.7) th/mm3 Lymph # (Auto) 1.6 (1.0-4.8) th/mm3 [place] # (Auto) 0.6 (0.0-0.9) th/mm3 Eos # (Auto) 0.1 (0.0-0.4) th/mm3 Baso # (Auto) 0.0 (0.0-0.2) th/mm3 Comprehensive Metabolic Panel 05/11/18 Range/Units 23:55 Sodium 137 (136-145) meq/L Potassium 3.7 (3.5-5.1) meq/L Chloride 108 H (98-107) meq/L Carbon Dioxide 19.4 L (21.0-32.0) meq/L BUN 28 H (7-18) mg/dL Creatinine 0.82 (0.50-1.00) mg/dL Calcium 8.6 (8.5-10.1) mg/dL Intake and Output 05/11/18 05/12/18 05/12/18 22:59 06:59 14:59 Other: Weight 111.13 kg EKG interpretations - EKG EKG shows: sinus rhythm (EKGs are sinus rhythm without significant ST segment depressions or elevations.) Caprini VTE Risk Assessment Caprini VTE Risk Assessment: Moderate/High Risk (score >= 2) Caprini Risk Assessment Model: Point Value = 1 Point Value = 2 Point Value = 3 Point Value = 5 Age 41-60 Minor surgery BMI > 25 kg/m2 Swollen legs Varicose veins or History of unexplained or recurrent spontaneous Oral contraceptives or hormone replacement Sepsis (< 1 month) Serious lung disease, including pneumonia (< 1 month) Abnormal pulmonary function Acute myocardial infarction Congestive heart failure (< 1 month) History of inflammatory bowel disease Medical patient at bed rest Age 61-74 Arthroscopic surgery Major open surgery (> 45 min) Laparoscopic surgery (> 45 min) Malignancy Confined to bed (> 72 hours) Immobilizing plaster cast Central venous access Age >= 75 History of VTE Family history of VTE Factor V Leiden Prothrombin [id number] Lupus anticoagulant Anticardiolipin antibodies Elevated serum homocysteine Heparin-induced thrombocytopenia Other congenital or acquired thrombophilia Stroke (< 1 month) Elective arthroplasty Hip, pelvis, or leg fracture Acute spinal cord injury (< 1 month) Prophylaxis Regimen: Total Risk Factor Score Risk Level Prophylaxis Regimen 0-1 Low Early ambulation 2 Moderate Order ONE of the following: *Sequential Compression Device (SCD) *Heparin 5000 units SQ BID 3-4 Higher Order ONE of the following medications: *Heparin 5000 units SQ TID *Enoxaparin/Lovenox 40 mg SQ daily (WT < 150 kg, CrCl > 30 mL/min) *Enoxaparin/Lovenox 30 mg SQ daily (WT < 150 kg, CrCl > 10-29 mL/min) *Enoxaparin/Lovenox 30 mg SQ BID (WT < 150 kg, CrCl > 30 mL/min) AND/OR *Sequential Compression Device (SCD) 5 or more Highest Order ONE of the following medications: *Heparin 5000 units SQ TID (Preferred with Epidurals) *Enoxaparin/Lovenox 40 mg SQ daily (WT < 150 kg, CrCl > 30 mL/min) *Enoxaparin/Lovenox 30 mg SQ daily (WT < 150 kg, CrCl > 10-29 mL/min) *Enoxaparin/Lovenox 30 mg SQ BID (WT < 150 kg, CrCl > 30 mL/min) AND *Sequential Compression Device (SCD) Assessment and Plan - Assessment (1) Chest pain Code(s): R07.9 - Chest pain, unspecified Status: Acute (2) HTN (hypertension) Code(s): I10 - Essential (primary) hypertension Status: Acute - Plan * Chest pain: Patient had serial cardiac enzymes and EKGs for ruling out purposes. She was seen by Joseph of cardiology in the chest pain center. With history of essentially normal heart catheterization about 7 months ago, patient be discharged home at this time with instructions to follow-up with her violent crimes detective. Spoke with her violent crimes detective, informed that we will be discharging this patient and his request of the patient keep her appointment for the loop recorder placement tomorrow. Follow-up with her violent crimes detective and PCP. * Hypertension: Continue medication. Patient is stable at this time. She is agreeable to this plan.
[2018-05-12] MEDS ORDERED: Gabapentin 400 MG Capsule PO SCH (13:00)
--- NOTE | 2018-05-12 13:58 | ECG ---
Date Performed: 05/11/2018 Time Performed: 23:37:42 PTAGE: 62 years EKG: Sinus rhythm WITH FIRST DEGREE AV BLOCK LOW QRS VOLTAGE IN PRECORDIAL LEADS INCOMPLETE RIGHT BUNDLE BRANCH BLOCK ABNORMAL ECG Compared to PREVIOUS TRACING , PREVIOUS TRACING DOCTOR: Kirk Conner Interpretating Date/Time 05/12/2018 13:57:59
--- NOTE | 2018-05-12 16:52 | ECG ---
Date Performed: 05/12/2018 Time Performed: 09:00:13 PTAGE: 62 years EKG: Sinus rhythm WITH FIRST DEGREE AV BLOCK INCOMPLETE RIGHT BUNDLE BRANCH BLOCK ABNORMAL ECG Since PREVIOUS TRACING , no significant change noted PREVIOUS TRACIN05/11/2018 23.37 DOCTOR: Latoay Ruiz Interpretating Date/Time 05/12/2018 16:49:45
[2018-05-12] MEDS ORDERED: traZODone 100 MG Tablet PO SCH (21:00)
[2018-05-13] MEDS ORDERED: Spironolactone 25 MG Tablet PO SCH (09:00)
[2018-05-13] MEDS ORDERED: Famotidine 20 MG Tablet PO SCH (09:00)
[2018-05-13] MEDS ORDERED: Morphine Sulfate 15 MG IR Tablet PO SCH (09:00)
== END 2018-05-12 10:36 | disposition home or self-care (01) ==
LOC: NEPE 23:05 → NEDA 23:05
PROVIDERS: ADMIT Internal Medicine Cardiovascular Disease; ATTEND Internal Medicine Cardiovascular Disease